=== PATIENT | female | born 1980 | race Hispanic/Latino ===

== ENCOUNTER 2018-02-14 12:42 | Emergency (ER) | payer MEDICARE ==
[2018-02-14] MEDS ORDERED: Dextrose 50% SYRINGE Inj (50 ml) ONE (12:48)
[2018-02-14 12:49] VITALS: BMI 21.6
[2018-02-14] MEDS ORDERED: Dextrose 50% SYRINGE Inj (50 ml) IVP ONE ×2 (13:02)
--- NOTE | 2018-02-14 13:14 | ED PDOC ---
Syncope/Near Syncope/Dizziness Time Seen by Provider: 02/14/18 12:54 Chief Complaint (Nursing): Syncope Chief Complaint (Provider): Syncope History Per: Patient History/Exam Limitations: no limitations Onset/Duration Of Symptoms: Hrs (prior to arrival) Additional Complaint(s): Patient is a 37 y/o female who was brought to the ED by family after patient experienced a syncopal episode preceded by vomiting. Patient has a history of IDDM and was found to have a blood glucose accucheck of 26 on arrival to ED. Patient was given 2 amps of D50 and responded by becoming awake, alert, and alert and oriented x3. Patient was recently admitted for DKA. Past Medical History Reviewed: Historical Data, Nursing Documentation, Vital Signs - Medical History PMH: Diabetes (IDDM) - Family History Family History: States: Unknown Family Hx - Social History Drugs: Other (IVDA) - Allergies Allergies/Adverse Reactions: Allergies Allergy/AdvReac Type Severity Reaction Status Date / Time Penicillins Allergy RASH Verified 02/14/18 12:48 Review of Systems ROS Statement: Except As Marked, All Systems Reviewed And Found Negative Constitutional: Negative for: Fever Gastrointestinal: Positive for: Vomiting Neurological: Positive for: Other (syncope) Physical Exam - Reviewed Nursing Documentation Reviewed: Yes Vital Signs Reviewed: Yes - Physical Exam Cardiovascular/Chest: Positive for: Regular Rate, Rhythm. Negative for: Murmur Respiratory: Positive for: Normal Breath Sounds. Negative for: Respiratory Distress Gastrointestinal/Abdominal: Positive for: Normal Exam, Soft. Negative for: Tenderness Extremity: Positive for: Swelling (lower extremities bilaterally), Other ( multiple ulcers; track campbell with skin grafts on left arm). Negative for: Calf Tenderness Neurologic/Psych: Positive for: Alert (after administration of D50: awake and alert), Oriented (after administrations of D50: oriented x3). Negative for: Motor/Sensory Deficits - Laboratory Results Result Diagrams: 02/14/18 13:15 02/14/18 13:15 Medical Decision Making Medical Decision Making: Time: 13:02 Initial Plan: --EKG --CMP --Drug screen --ED urine --ED urine dipstick --CBC w/ diff --D50 2 amps --US Duplex lower extremities Pt advised admission/24 hr obs due episode of hypoglycemia, preceded by admission for DKA last week. Pt wishes to go home. Aware of risks of not staying in hospital including recurrent DKA, hypoglycemia and . Scribe Attestation: Documented by Poli Moise, acting as a scribe for Bridger Banuelos MD. Provider Scribe Attestation: All medical record entries made by the Scribe were at my direction and personally dictated by me. I have reviewed the chart and agree that the record accurately reflects my personal performance of the history, physical exam, medical decision making, and the department course for this patient. I have also personally directed, reviewed, and agree with the discharge instructions and disposition. Disposition - Clinical Impression Clinical Impression: Hypoglycemia - Patient ED Disposition Is Patient to be Admitted: Yes Counseled Patient/Family Regarding: Studies Performed, Need For Followup - Disposition Disposition: Routine/Home Disposition Time: 15:10 Condition: FAIR - POA Present On Arrival: None
[2018-02-14] MEDS ORDERED: Dextrose 5%/0.45% NS 1,000 ML IV SCH (13:15)
[2018-02-14 13:21] LABS: BASO # 0.1 K/uL (0.0-0.2); BASO % 0.8 % (0.0-2.0); EOS # 0.1 K/uL (0.0-0.7); EOS % 0.4 % (0.0-4.0); HEMOGLOBIN 8.7 g/dL (12.0-16.0); LYMPH # 1.8 K/uL (1.0-4.3); LYMPH % 10.8 % (20.0-40.0); MEAN CELL VOLUME 85.2 fl (81.0-99.0); MEAN CORPUSCULAR HGB CONC 32.9 g/dL (33.0-37.0); MEAN PLATELET VOLUME 9.4 fl (7.2-11.7); MONO # 0.9 K/uL (0.0-0.8); MONO % 5.2 % (0.0-10.0); NEUT # 13.5 K/uL (1.8-7.0); NEUT % 82.8 % (50.0-75.0); NRBC % 0.1 % (0.0-0.0); RBC 3.1 Mil/uL (3.80-5.20); RED CELL DISTRIBUTION WIDTH 15.9 % (11.5-14.5); WHITE BLOOD COUNT 16.3 K/uL (4.8-10.8)
[2018-02-14 13:34] LABS: ALT/SGPT 68 U/L (9-52); AST/SGOT 76 U/L (14-36); BLOOD UREA NITROGEN 27 mg/dl (7-17); CALCIUM 8.1 mg/dL (8.4-10.2); GFR AFRICAN-AMERICAN > 60; GFR NON-AFRICAN AMERICAN > 60
[2018-02-14] MEDS ORDERED: Potassium Chloride 20 mEq ER Tab PO ONE ×2 (13:38→14:02)
[2018-02-14 13:50] LABS: BARBITURATES, UR NEGATIVE (NEGATIVE); BENZODIAZEPINES, UR POSITIVE (NEGATIVE); OPIATES, UR NEGATIVE (NEGATIVE); PHENCYCLIDINE, UR NEGATIVE (NEGATIVE)
--- NOTE | 2018-02-14 15:40 | US ---
Date of service: 02/14/2018 PROCEDURE: Bilateral lower extremity venous duplex Doppler. HISTORY: r/o DVT COMPARISON: None available. TECHNIQUE: Bilateral common femoral, superficial femoral, popliteal and posterior tibial veins were evaluated. Flow was assessed with color Doppler, compressibility, assessment of phasic flow and augmentation response. FINDINGS: COMMON FEMORAL VEIN: Right CFV: Unremarkable. Left CFV: Unremarkable. SUPERFICIAL FEMORAL VEIN: Right SFV: Unremarkable. Left SFV: Unremarkable. POPLITEAL VEIN: Right Popliteal: Unremarkable. Left Popliteal: Unremarkable. POSTERIOR TIBIAL VEIN: Right PTV: Unremarkable. Left PTV: Unremarkable. OTHER FINDINGS: Prominent bilateral inguinal lymph nodes IMPRESSION: No evidence of deep venous thrombosis. Prominent bilateral inguinal lymph nodes.
[2018-02-14 16:29] VITALS: BP 154/76; PULSE 88; RESP 16; TEMP 97.1; O2SAT 98
--- NOTE | 2018-02-15 09:08 | CARD ---
APPROVED REPORT Date of service: 02/14/2018 EKG Measurement Heart [id number] <Conclusion> Normal sinus rhythm Normal ECG
== END 2018-02-14 16:15 | disposition home or self-care (01) ==
LOC: H.ER 12:42 → H.ERHOLD 14:37 → UNDOADMOB 14:37 → H.ER 16:15
DX: R55 Syncope and collapse (principal); E16.2 Hypoglycemia, unspecified
CPT/HCPCS: 80053; 81025; 82948; 85025; 93005; 93970; 96361; 96374; 99285; G0480; J7042

== ENCOUNTER 2018-08-10 18:19 | Emergency (ER) | payer MEDICARE, MEDICAID ==
[2018-08-10 18:20] VITALS: BMI 21.6
[2018-08-10 18:31] VITALS: BP 121/71; PULSE 95; RESP 16; TEMP 98.5; O2SAT 97
--- NOTE | 2018-08-11 10:19 | CARD ---
APPROVED REPORT Date of service: 08/10/2018 EKG Measurement Heart [id number] <Conclusion> Normal sinus rhythm Incomplete right bundle branch block Otherwise normal ECG
== END 2018-08-10 19:50 | disposition left against medical advice (07) ==
LOC: H.ER 18:19
DX: Z02.89 Encounter for other administrative examinations (principal)